=== PATIENT | female | born 1960 | race African-American/Black ===

== ENCOUNTER 2016-11-02 18:01 | Emergency (ER) | payer OTHER, BC ==
[2016-11-02 18:11] VITALS: BP 129/66
[2016-11-02] MEDS ORDERED: PRED20TA PO (18:40)
[2016-11-02] MEDS ORDERED: CYCL5TAB PO (18:40)
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
== END 2016-11-02 18:46 | disposition home or self-care (01) ==
LOC: ER 18:01
DX: M25.511 Pain in right shoulder (principal); M54.6 Pain in thoracic spine; E78.00 Pure hypercholesterolemia, unspecified; I10 Essential (primary) hypertension; Z95.5 Presence of coronary angioplasty implant and graft; Z90.710 Acquired absence of both cervix and uterus; Z88.5 Allergy status to narcotic agent; Z88.8 Allergy status to other drugs, medicaments and biological substances; V43.42XA Person boarding or alighting a car injured in collision with other type car, initial encounter; Y93.89 Activity, other specified; Y99.8 Other external cause status; Y92.488 Other paved roadways as the place of occurrence of the external cause
CPT/HCPCS: 99283